=== PATIENT | male | born 1940 | race Caucasian/White ===

== ENCOUNTER 2025-07-24 08:22 | Emergency (ER) | payer OTHER, MEDICARE ==
[~2025-07-24] VITALS: Ht 177.8 cm; Wt 91.2 kg
--- NOTE | 2025-07-24 08:35 | ELECTROCARDIOGRAPH REPORT ---
[facility] Test Date: 2025-07-24 Test Time: 08:28:32 Pat Name: NELLY ALLEN Department: EMERGENCY ROOM Room: Gender: M Sewing Trimmer: PM : 1940 Requested By: ADRIEL ARSHAD Order Number: [id number] Reading MD: Measurements Intervals [place] Rate: 73 P: 51 MI: 152 QRS: 78 QRSD: 96 T: 257 QT: 326 QTc: 360 Interpretive Statements Sinus rhythm Inferior infarct, age indeterminate Lateral leads are also involved Please click the below link to view image of tracing.
[2025-07-24 08:58] LABS: MEAN PLATELET VOLUME 8.1 FL (7.4-10.4); RED CELL DISTRIBUTION WIDTH 13.7 % (11.5-14.5)
[2025-07-24 09:17] LABS: CREATININE 0.93 MG/DL (0.60-1.10); PRO BRAIN NATRIURETIC PEPTIDE 97 PG/ML (0-450); TOTAL CARBON DIOXIDE 25.4 MMOL/L (24-32); eCRCL 61 ML/MIN; eGFR 77 ML/MIN
--- NOTE | 2025-07-24 09:42 | RADIOLOGY REPORT ---
DI CHEST,TWO VIEWS CLINICAL HISTORY: COUGH WITH SOB COMPARISON: None TECHNIQUE: Frontal and lateral view of the chest was obtained FINDINGS: Lines and Tubes: None Lungs: No focal consolidation. Pleura: No effusion. No pneumothorax. Cardiomediastinal contours: Unremarkable Bones: Median sternotomy. IMPRESSION: No acute cardiopulmonary disease.
--- NOTE | 2025-07-24 10:14 | Physician Documentation ---
History of Present Illness ~ Chief Complaint: Cold, cough & congestion Stated Complaint: DIFF BREATHING Time Seen by MD: 09:06 HPI This is an 85-year-old male with a history of CABG and aortic stenosis who presents with three days of cough and shortness of breath, patient reports shortness breath is worse at night in which he reports I get coughing fits and then I am gasping for air, patient additionally reports runny nose, a tickle in my throat, and a sensation of chest congestion that he is unable to clear which when he attempts to clear he reports triggers his coughing fits. Patient reports no chest pain or fever. Patient reports other than cough and shortness breath worse at night no other precipitating or palliating factors. Medication Reconciliation Allergies: Coded Allergies: morphine (Unverified Allergy, Unknown, 07/24/25) vancomycin (Unverified Allergy, Unknown, 07/24/25) Uncoded Allergies: IV CONTRAST (Allergy, Unknown, 07/24/25) Scheduled Amox Tr/Potassium Clavulanate 875/125 MG (Augmentin 875/125 MG), 1 TAB PO Q12H Past Medical History Past Medical History: Aortic Stenosis, Coronary Artery Disease Review of Systems ROS As stated above in the HPI, otherwise all systems are reviewed and negative. Physical Exam Vital Signs: Temperature: 98.0, Source: Oral, Heart Rate: 56, Respiratory Rate: 16, BP: 142/63, Pulse Oximetry: 95, Weight: 91.200 Oxygen Flow Rate: 0 Physical Exam VITALS: Reviewed and as above. GENERAL: Alert, nontoxic appearing, no apparent distress. RESPIRATORY: No increased work of breathing, no respiratory distress, speaking in full clear sentences, clear lung sounds in all mario CV: Regular rate and rhythm, slight systolic murmur heard at the sternal border BACK: No CVA tenderness GI: Soft nontender, no rebound, no guarding MUSCULOSKELETAL: SKIN: Warm and dry NEURO: GCS 15 Progress Results/Orders Results/Orders Completed Orders - MARAL LAMB Influenza Type A&B Rapid Test (07/24/25 10:15) Vital Signs 07/24/25 07/24/25 07/24/25 07/24/25 08:42 09:50 11:33 11:43 Temp 97.8 98.0 98.3 Pulse 62 56 57 Resp 20 16 14 15 B/P (MAP) 141/69 142/63 (89) 124/43 Pulse Ox 99 95 99 O2 Flow Rate 0 0 Laboratory Tests Test 07/24/25 08:33 07/24/25 10:14 07/24/25 10:15 07/24/25 10:23 White Blood Count 8.1 Red Blood Count 5.36 Hemoglobin 15.5 Hematocrit 46.3 Mean Corpuscular Volume 86.4 Mean Corpuscular Hemoglobin 28.9 Mean Corpuscular Hemoglobin Concent 33.5 Red Cell Distribution Width 13.7 Platelet Count 265 Mean Platelet Volume 8.1 Neutrophils (%) (Auto) 63.4 Lymphocytes (%) (Auto) 27.0 Monocytes (%) (Auto) 6.7 Eosinophils (%) (Auto) 1.4 Basophils (%) (Auto) 1.5 H Neutrophils # (Auto) 5.1 Lymphocytes # (Auto) 2.2 Monocytes # (Auto) 0.5 Eosinophils # (Auto) 0.1 Basophils # (Auto) 0.1 CBC Comment Sodium Level 138 Potassium Level 3.7 Chloride Level 103 Carbon Dioxide Level 25.4 Anion Gap 10 Blood Urea Nitrogen 14 Creatinine 0.93 Estimated GFR/1.73 m2 77 BUN/Creatinine Ratio 15.1 Glucose Level 177 H Lactic Acid Level 2.5 H 1.6 Calcium Level 9.7 Troponin I High Sensitivity 10 11 Pro-B-Type Natriuretic Peptide 97 Albumin 3.9 Chemistry Comments SARS-CoV-2 Antigen (Rapid) Negative Influenza Type A Antigen Negative Influenza Type B Antigen Negative Troponin I High Sens Percent Delta 10 Troponin I Hi Sens Absolute Change 1 Microbiology Date/Time Source Procedure Growth Status 07/24/25 09:17 Blood Hand Left Blood Culture - Preliminary NEGATIVE (LESS THAN 24 HOURS) Resulted EKG/XRAY/CT/US/VASC/MRI EKG : Additional Comment EKG at 8:28 a.m. interpreted by myself as sinus rhythm at a rate of 73, normal axis, nonspecific ST-T segment changes Chest X-Ray : Additional Comments Exam: CHEST,TWO VIEWS DI CHEST,TWO VIEWS CLINICAL HISTORY: COUGH WITH SOB COMPARISON: None TECHNIQUE: Frontal and lateral view of the chest was obtained FINDINGS: Lines and Tubes: None Lungs: No focal consolidation. Pleura: No effusion. No pneumothorax. Cardiomediastinal contours: Unremarkable Bones: Median sternotomy. IMPRESSION: No acute cardiopulmonary disease. Electronically Signed by:SHALOM BELTRAN MD Date & Time: 07/24/25939 Dictated by: SHALOM BELTRAN MD Dictation date and time: 07/24/25 0850 I have reviewed and agree with the radiology report. I have reviewed and interpreted the imaging as: No focal consolidation or pneumothorax Medical Decision Making Additional information obtaine: N/A Findings This 85-year-old male with a history of CABG in the aortic stenosis presented with three days of cough and shortness of breath, patient described shortness breath as chest congestion as difficult clear especially at night which triggers episodes of coughing, physical exam was reassuring with clear lung sounds in all mario and vital signs without evidence of hypoxia or instability. Chest x-ray did not demonstrate evidence of focal consolidation to suggest pneumonia, though given risk factors treatment for possible early pneumonia is indicated. EKG did not demonstrate evidence of infarction or ischemia to suggest cardiac origin of shortness breath and patient was not tachycardic, reported no chest pain, and was not hypoxic making pulmonary embolism less likely. Given history and physical I suspect symptoms due to upper respiratory tract infection with concern for possible early pneumonia therefore patient we will be treated with course of oral antibiotics, patient is hemodynamically stable and otherwise well-appearing and appropriate for outpatient follow up, I discussed with the patient falling up promptly with his primary care provider at the [facility] along with careful return to care precautions discussed with the patient and his family member who both verbalized understanding. Patient additionally provided home care instructions which he in his family member verbalized understanding of. Differential Dx:Considerations: Include: Allergic rhinitis, Influenza, Pharyngitis-Diphtheria, Pharyngitis-Streptoccal, Pharyngitis-Viral, Pneumonia, Pnuemonitis, Sinusitis, URI Departure Time of Disposition: 11:15 Disposition: 01 HOME / SELF CARE / HOMELESS Impression: Primary Impression: Cough Qualified Codes: R05.1 - Acute cough Condition: Improved Discharge Instructions: Upper Respiratory Infection, Adult Additional Instructions: Your symptoms are consistent with a an upper respiratory tract infection though due to some risk factors we will treat this as early pneumonia, please take the antibiotics as prescribed. Your exam and vital signs were reassuring. Stay well hydrated, warm non caffeinated fluids and honey may help with your cough, I also [facility]. Please follow up with your primary care provider in the next few days. Please return to the emergency department for any new or worsening concerning symptoms including but not limited to worsening shortness of breath, chest pain, or fever. Referrals: NO PRIMARY CARE PROVIDER (PCP) Prescriptions Amox Tr/Potassium Clavulanate 875/125 MG (Augmentin 875/125 MG) 875 Mg-125 Mg Tablet 1 TAB PO Q12H for 5 Days, #10 TAB Prov: MARAL LAMB 07/24/25 Education Educated: Patient, Family Educated regarding: diagnosis, treatment, prognosis, need for follow up Signature Scribe Signature: No scribe Attestation: The note accurately reflects work and decisions made by me.ORTEGA Ames 07/25/25 09:00 MARAL LAMB Jul 24, 2025 10:14
[2025-07-24 10:41] LABS: INFLUENZA TYPE A ANTIGEN RAPID NEGATIVE (Negative); INFLUENZA TYPE B ANTIGEN RAPID NEGATIVE (Negative)
[2025-07-24] MEDS ORDERED: AMOX-580 PO (11:18)
[2025-07-24 11:33] VITALS: BP 124/43; PULSE 57; TEMP 98.3; O2SAT 99
[2025-07-24 11:43] VITALS: RESP 15
== END 2025-07-24 11:34 | disposition home or self-care (01) ==
LOC: ER 08:23
DX: R05.9 Cough, unspecified (principal); I25.10 Atherosclerotic heart disease of native coronary artery without angina pectoris; Z88.1 Allergy status to other antibiotic agents; Z88.5 Allergy status to narcotic agent; Z95.1 Presence of aortocoronary bypass graft; Z20.822 Contact with and (suspected) exposure to COVID-19
CPT/HCPCS: 36415; 71046; 80048; 83605; 83880; 84484; 85025; 87040; 87804; 87811; 93005; 99285